=== PATIENT | male | born 1960 | race Caucasian/White ===

== ENCOUNTER 2016-11-27 21:05 | Emergency (ER) | payer OTHER ==
[~2016-11-27] VITALS: Ht 198.1 cm; Wt 90.7 kg
[~2016-11-27 21:05] MED LIST: ALBUTEROL0.09 MG/A1 IH; AMBIEN10 MG PO; AMLODIPINE BESYL5 MG PO; ANAPROX DS550 MG PO; CIPRO500 MG PO; DELTASONE10 MG PO; DOXYCYCLINE MO100 MG PO; DOXYCYCLINE100 M3 PO; LISINOPRIL/HCTZ1 TA3 PO; LISINOPRIL20 MG PO; LISINOPRIL5 MG PO; LOPRESSOR25 MG PO; METOPROLOL100 MG PO; MUCINEX600 MG PO; NASONEX0.05 MG/AC NAS; PHENERGAN W/DM120 ML PO; PREDNICOT20 MG PO; PREDNISONE20 M1 PO; PROAIR RESPICL90 MCG IH; PROVENTIL0.09 MG/A1 INH; TRAMADOL HCL50 MG PO; ULTRAM50 MG PO; VIBRAMYCIN100 MG PO; ZESTORETIC 12.51 TA2 PO; ZITHROMAX Z PA250 MG PO; ZOFRAN ODT4 MG SL
[2016-11-27 21:24] VITALS: BP 165/82
[2016-11-27] MEDS ORDERED: NORCO 5-325 TA1 EACH PO (22:34)
[2016-11-27] MEDS ORDERED: PREDNISONE10 MG PO (22:34)
[2016-11-27] MEDS ORDERED: Orphenadrine C100 MG PO (22:34)
[2016-11-27 22:37] LABS: BILIRUBIN NEGATIVE (NEGATIVE); BLOOD 1+ (NEGATIVE); CLARITY CLEAR (CLEAR); COLOR YELLOW (YELLOW); GLUCOSE NEGATIVE (NEGATIVE); KETONE NEGATIVE (NEGATIVE); LEUKO ESTERASE NEGATIVE (NEGATIVE); NITRITE NEGATIVE (NEGATIVE); PH 5.5 (5.0-9.0); SPECIFIC GRAVITY 1.025 (1.005-1.030); UROBILINOGEN 0.2 E.U./dl (0.2-1.0)
[2016-11-27 22:45] LABS: BACTERIA TRACE; EPITHELIAL CELLS 0-2
== END 2016-11-27 23:39 | disposition home or self-care (01) ==
LOC: ED 21:05
PROVIDERS: Emergency Medicine Emergency Medical Services
DX: S39.012A Strain of muscle, fascia and tendon of lower back, initial encounter (principal); M51.37 Other intervertebral disc degeneration, lumbosacral region; J32.8 Other chronic sinusitis; F17.200 Nicotine dependence, unspecified, uncomplicated; Z88.6 Allergy status to analgesic agent; X58.XXXA Exposure to other specified factors, initial encounter; Y93.89 Activity, other specified; Y92.69 Other specified industrial and construction area as the place of occurrence of the external cause; Y99.9 Unspecified external cause status

== ENCOUNTER 2017-07-30 05:22 | Emergency (ER) | payer OTHER ==
[~2017-07-30] VITALS: Ht 198.1 cm; Wt 99.8 kg
[~2017-07-30 05:22] MED LIST changes: +NORCO 5-325 TA1 EACH PO; +Orphenadrine C100 MG PO; +PREDNISONE10 MG PO
[2017-07-30 06:10] LABS: BASO % 0.4 % (0.0-1.0); EOS # 0.5 10*3/uL (0.0-0.4); EOS % 5.2 % (1.0-4.0); HEMATOCRIT 47.5 % (42.0-52.0); LYMPH # 3.1 10*3/uL (1.3-4.4); LYMPH % 32.3 % (27.0-41.0); MEAN CELL VOLUME 95.8 fl (80.0-94.0); MEAN CORPUSCULAR HGB 32.3 pg (27.0-31.0); MEAN CORPUSCULAR HGB CONC 33.7 g/dl (33.0-37.0); MEAN PLATELET VOLUME 11.5 fl (9.6-12.3); MONO # 0.9 10*3/uL (0.1-1.0); MONO % 9.6 % (3.0-9.0); NEUT % 52.3 % (47.0-73.0); PLATELET COUNT AUTOMATED 211 10*3/uL (130-400); RED BLOOD COUNT 4.96 10*6/uL (4.50-5.90); RED CELL DISTRI WIDTH 12.6 % (0-14.5); WHITE BLOOD COUNT 9.5 10*3/uL (4.8-10.8)
[2017-07-30 06:21] LABS: ACT PARTIAL THROMBO TIME 27.2 SECONDS (20.8-31.5)
[2017-07-30 06:27] VITALS: BP 143/91
[2017-07-30 06:29] LABS: ALBUMIN 3.7 gm/dl (3.1-4.5); ALKALINE PHOSPHATASE 80 U/L (45-117); BUN 21 mg/dl (7-24); CHLORIDE 106 mmol/L (98-107); CREATININE 1.08 mg/dL (0.70-1.30); POTASSIUM 4.2 mmol/L (3.5-5.1); SGOT/AST 23 IU/L (3-35); SGPT/ALT 22 U/L (12-78); SODIUM 140 mmol/L (136-145); TOTAL PROTEIN 7.3 gm/dL (6.4-8.2)
[2017-07-30 06:58] LABS: TROPONIN I < 0.015 ng/ml (<0.045)
[2017-07-30] MEDS ORDERED: PREDNISONE50 MG PO ×2 (06:58→07:26)
[2017-07-30] MEDS ORDERED: AVPAK AZITHROM250 M1 PO ×2 (06:58→07:26)
[2017-07-30] MEDS ORDERED: DUONEB 3 MG/3 ML3 M1 INH (07:25)
[2017-07-30] MEDS ORDERED: NEBULIZER NEB ×2 (07:25→17:14)
== END 2017-07-30 08:27 | disposition home or self-care (01) ==
LOC: ED 05:22
PROVIDERS: Student in an Organized Health Care Education/Training Program
DX: J44.1 Chronic obstructive pulmonary disease with (acute) exacerbation (principal); F17.200 Nicotine dependence, unspecified, uncomplicated; J32.9 Chronic sinusitis, unspecified; Z79.899 Other long term (current) drug therapy; Z88.6 Allergy status to analgesic agent

== ENCOUNTER 2017-09-17 12:06 | Emergency (ER) | payer OTHER ==
[~2017-09-17 12:06] MED LIST changes: +AVPAK AZITHROM250 M1 PO; +DUONEB 3 MG/3 ML3 M1 INH; +NEBULIZER NEB; +PREDNISONE50 MG PO
[2017-09-17] MEDS ORDERED: PROAIR HFA8.5 GM INH (12:15)
[2017-09-17] MEDS ORDERED: SYMB160 INH (12:15)
[2017-09-17] MEDS ORDERED: LISINOPRIL5 MG PO (12:16)
[2017-09-17 12:38] LABS: BASO # 0.1 10*3/uL (0.0-0.1); BASO % 0.6 % (0.0-1.0); EOS # 0.2 10*3/uL (0.0-0.4); EOS % 1.8 % (1.0-4.0); HEMATOCRIT 49.5 % (42.0-52.0); HEMOGLOBIN 16.8 g/dl (14.0-18.0); LYMPH # 2.6 10*3/uL (1.3-4.4); LYMPH % 28.6 % (27.0-41.0); MEAN CELL VOLUME 95.7 fl (80.0-94.0); MEAN CORPUSCULAR HGB 32.5 pg (27.0-31.0); MEAN CORPUSCULAR HGB CONC 33.9 g/dl (33.0-37.0); MEAN PLATELET VOLUME 10.9 fl (9.6-12.3); MONO # 0.7 10*3/uL (0.1-1.0); MONO % 7.6 % (3.0-9.0); NEUT # 5.6 10*3/uL (2.3-7.9); NEUT % 61.3 % (47.0-73.0); PLATELET COUNT AUTOMATED 174 10*3/uL (130-400); RED BLOOD COUNT 5.17 10*6/uL (4.50-5.90); RED CELL DISTRI WIDTH 12.9 % (0-14.5); WHITE BLOOD COUNT 9.1 10*3/uL (4.8-10.8)
[2017-09-17 12:46] LABS: ACT PARTIAL THROMBO TIME 27.2 SECONDS (20.8-31.5)
[2017-09-17 12:54] LABS: ALKALINE PHOSPHATASE 74 U/L (45-117); BUN 17 mg/dl (7-24); CHLORIDE 105 mmol/L (98-107); CREATININE 1.08 mg/dL (0.70-1.30); LIPASE 65 U/L (73-393); POTASSIUM 3.8 mmol/L (3.5-5.1); SGOT/AST 16 IU/L (3-35); SGPT/ALT 22 U/L (12-78); SODIUM 137 mmol/L (136-145); TOTAL PROTEIN 7.3 gm/dL (6.4-8.2); TROPONIN I < 0.015 ng/ml (<0.045)
[2017-09-17 14:41] VITALS: BP 155/100
== END 2017-09-17 14:50 | disposition short-term general hospital (02) ==
LOC: ED 12:06
PROVIDERS: Emergency Medicine
DX: I63.9 Cerebral infarction, unspecified (principal); J32.9 Chronic sinusitis, unspecified; Z88.6 Allergy status to analgesic agent; Z79.899 Other long term (current) drug therapy

== ENCOUNTER 2018-03-23 19:47 | Inpatient (IN) | payer SELFPAY ==
[~2018-03-23] VITALS: Ht 200.7 cm; Wt 95.3 kg
--- NOTE | ~2018-03-23 | PROC NOTE ---
[place], [place] PROCEDURE NOTE NAME: NEMO AVILA UNIT #: [id number] ROOM: 528 DOCTOR: TAMIKO HUMPHRIES MD,AICHA BIRTHDATE: [birth year] DOS: 03/26/2018 BRONCHOSCOPY NOTE PREOPERATIVE DIAGNOSES: The patient with severe cough and wheezing. The patient is not responding to current treatment and maximal medical management. POSTOPERATIVE DIAGNOSES: Removal of the mucus plug, moderate impaction in the bronchial tree bilaterally. There were no endobronchial obstructive lesion. COMPLICATION: None. PROCEDURE DESCRIPTION: Informed consent obtained for the patient. The patient brought to the OR and placed in supine position. Conscious sedation administered by Anesthesia Department. After achieving appropriate sedation, airway introduced into the mouth. Bronchoscope advanced to the airway into laryngeal area. Epiglottis and vocal cord seen. Moderate amount of redundant tissue noted in the pharyngeal area with fat deposition. The vocal cord noted yellowish in color and moving symmetrical movement. Bronchoscope advanced through the vocal to the tracheal lumen. Tracheal lumen was identified and noted moderate amount of mucus, which was suctioned out to the fredo level. The patient noted moderate impaction of the mucus plugs in endobronchial tree bilaterally was suctioned out, clear with normal saline wash, sent for cultures. Procedure was well tolerated by the patient without difficulty. Postoperative findings will be discussed with the patient once the patient recovered the effects of acute sedation. No immediate change in treatment will be needed. The cultures of the current bronchial washing was sent to the laboratory. AICHA MORRISON MD CM:PROCNOTE:PROCEDURE NOTE [phone] AICHA HUMPHRIES MD
--- NOTE | ~2018-03-23 | PR ---
[place], [place] PROGRESS NOTE NAME: [id number] UNIT #: [id number] ROOM: 528 DOCTOR: TAMIKO HUMPHRIES MD,AICHA BIRTHDATE: [birth year] DOS: 03/26/2018 SUBJECTIVE: The patient has been noted n.p.o. ____ bronchoscopy, still noted with the patient significant cough that remained nonproductive with excessive coughing noted with the chest pain intermittently in the lower portion of the rib cage. The patient denies symptoms of hemoptysis. Shortness of breath occurs with exertion with wheezing, was also reported continuously as well. Denies symptoms of edema of the lower extremity, headache or diplopia. Remaining system review of the patient noted all negative. OBJECTIVE: GENERAL: The patient has been currently lying in the bed on the morning of assessment. VITAL SIGNS: Temperature noted normal in the last 24 hours, respiration 18-20, heart rate 77-71, blood pressure 170/91, 154/88. Pulse oxygen saturation recorded on room air as 94% saturation. HEENT: Moderate obesity. Head was atraumatic. Eyes nonicterus. NECK: Supple. CARDIOVASCULAR: S1, S2 audible. LUNGS: Moderately reduced, breath sounds noted in the lungs bilaterally with expiratory wheezing. There were no crackles. ABDOMEN: Soft, nontender, bowel sounds present. EXTREMITIES: No acute edema. MUSCULOSKELETAL: Without any acute deformities. CENTRAL NERVOUS SYSTEM: Cranial nerves 2-12 intact. LABORATORY DATA: CBC today: WBC count 15,000, MCV 100.9. Normal platelet count. BMP this morning, BUN 23 and creatinine normal. Echocardiogram completed yesterday was assessed by Dr. Plunkett was reported with findings of mild LVH was noted without any segmental wall motion abnormalities. The CTA of the head was also done, which was completed yesterday. The patient reported findings of no acute intracranial abnormalities. IMPRESSION: The patient who has been currently noted with ongoing acute exacerbation of chronic obstructive pulmonary disease with acute tracheobronchitis, severe coughing, and impaction of the mucus plugs ____. History of chronic heavy nicotine abuse and moderate obesity. PLAN OF TREATMENT: Proceed with the fibrobronchoscopy as planned. Changes in the treatment, which needs to be done would be based on the progression of the illness. Other usual therapy, plan of management, care plan as well in progress. Supportive care. Other therapies, plan of management as well. Additional treatment changes will be done based on the progression of the illness. [place], [place] PROGRESS NOTE NAME: NEMO AVILA A UNIT #: [id number] ROOM: 528 DOCTOR: AIHCA WILSON MD BIRTHDATE: [birth year] AICHA MORRISON MD CM:PNPAO [id number] AICHA HUMPHRIES MD 03/27/18 0009 interface
--- NOTE | ~2018-03-23 | PR ---
[place], [place] PROGRESS NOTE NAME: NEMO AVILA UNIT #: [id number] ROOM: 528 DOCTOR: TAMIKO HUMPHRIES MD,AICHA BIRTHDATE: [birth year] DOS: 03/27/2018 PULMONARY PROGRESS NOTE SUBJECTIVE: Bronchoscopy was completed yesterday resulted in marked resolution and improvement of the respiratory symptoms in the last 24 hours. Denies symptoms of fever, chills, chest pain, or hemoptysis. He has been ambulating. OBJECTIVE: VITAL SIGNS: Normal temperature, respiratory rate 18, pulse 78, blood pressure 140/84. Pulse oxygen saturation on room air 99% saturation. HEENT: The patient was noted without any acute new finding. Moderate obesity. CARDIOVASCULAR: S1, S2 is audible. LUNGS: The patient was noted without any wheezing or crackles at the present time. ABDOMEN: Soft, nontender. EXTREMITIES: No edema. LABORATORY DATA: Culture of the bronchial washing noted with normal chu. The Gram stain of yesterday with many white blood cell, few gram-positive cocci in pairs and clusters. IMPRESSION: Significant improvement was noted with acute exacerbation of chronic obstructive pulmonary disease, acute tracheobronchitis. The patient had bronchoscopy and improvement in the symptoms. PLAN OF TREATMENT: Discharge planning for this patient. The patient could be discharged home today from the pulmonary standpoint for further followup as an outpatient. Abstinence tobacco was discussed with the patient. Tapering prednisone, oral antibiotics. Outpatient appointment in the office to further assess the patient's COPD and bronchial asthma. AICHA MORRISON MD CM:PNTRANS [phone] AICHA HUMPHRIES MD 03/27/18 1156 interface
--- NOTE | ~2018-03-23 | PR ---
[place], [place] PROGRESS NOTE [id number] UN[facility] #: [id number] ROOM: 528 DOCTOR: NEMO ARNOLD MD BIRTHDATE: [birth year] DOS: 03/26/2018 CARDIOLOGY PROGRESS NOTE SUBJECTIVE: The patient was seen today at his bedside on 03/26/2018 for followup of presumed atherosclerotic heart disease and abdominal aortic aneurysm. He is just back from having a bronchoscopy and is still coughing from that. The note in the chart indicates that he did have a considerable mucus plugging. He denied any significant back pain. He denies any chest pain at this time. PHYSICAL EXAMINATION: VITAL SIGNS: Today, pulse is 87 and regular, blood pressure is 132/74. He weighs 95.3 kg and has a body mass index of 23.7. NECK: Supple. He has no jugular distention. Carotids are full. LUNGS: Respirations are unlabored. His chest is clear to auscultation and percussion. He has no presacral edema. HEART: Has a regular rhythm with an S4 gallop. ABDOMEN: Benign. There are no masses, organomegaly or bruits. EXTREMITIES: Showed no edema. IMPRESSION: 1. Small abdominal aortic aneurysm at the iliac bifurcation measuring 2.9 cm in its maximum dimension. The aneurysm is saccular in configuration and appears to be stable since at least 04/23/2015. 2. Probable atherosclerotic heart disease. 3. Musculoskeletal back pain. 4. Chronic obstructive pulmonary disease with smoking up until the time of this admission. 5. Echocardiogram on 03/25/2018 showed mildly dilated left ventricle with mild concentric left ventricular hypertrophy, normal segmental wall motion and normal systolic function with normal diastolic function and no valve abnormalities. PLAN: At this point, the patient should be managed medically from a cardiac standpoint. He should be on a statin (high potency) and beta tamara. We have started those on this admission and he seems to be tolerating them well. He should also refrain from any future cigarette use and he claims that he will stop smoking at the time of his discharge. No other cardiac workup is planned at this time. We would like to see him back in the office for followup in 1-2 months and then probably once or twice a year thereafter. He probably should be seen by a vascular surgeon within the next few months to review his CAT scans and to arrange for followup of the aneurysm. It is my opinion; however, that they will simply recommend risk factor modification as we have already initiated. [facility] and I will remain available if needed during this hospitalization. I thank the hospitalist physicians for asking our advice regarding the patient's care. [place], [place] PROGRESS NOTE NAME: NEMO AVILA UNIT #: [id number] ROOM: 528 DOCTOR: NEMO ARNOLD MD BIRTHDATE: [birth year] NEMO ARNOLD MD CM:PNTRANS [phone] NEMO ARNOLD MD 03/26/18 1241 interface
--- NOTE | ~2018-03-23 | EKG ---
[place], [place] ELECTROCARDIOGRAM REPORT NAME: NEMO AVILA UNIT #: [id number] ROOM: 528 DOCTOR: WENDY DRAFT REPORT BIRTHDATE: [birth year] [facility] Test Date: 2018-03-23 Test Time: 20:26:18 Pat Name: NEMO AVILA Department: ER Room: 528 Gender: M Manager Critical Care Unit: Raman Mujica : 1960 Requested By: EMILY MANCILLA Order Number: [id number] Reading MD: Nemo Plunkett MD Measurements Intervals [place] Rate: 103 P: 67 WV: 159 QRS: 56 QRSD: 99 T: 44 QT: 334 QTc: 437 Interpretive Statements Sinus tachycardia Left atrial enlargement Minimal ST depression, inferior leads Artifact in lead(s) II,III,aVR,aVL,aVF,V1,V2,V5,V6 and baseline wander in lead(s) I,II,aVR,aVF,V2,V3,V4,V5,V6 Compared to ECG 01/28/2018 07:54:36 Atrial abnormality now present Electronically Signed On 03-24-2018 8:34:22 PST by Nemo Plunkett MD CM:EKGRPT:ELECTROCARDIOGRAM REPORT [id number] EMILY MANCILLA EPIPHANY DRAFT REPORT EMILY MANCILLA
--- NOTE | ~2018-03-23 | CON ---
[place], [place] REPORT OF CONSULTATION NAME: NEMO AVILA UNIT #: [id number] ROOM: 528 DOCTOR: AICHA WILSON MD BIRTHDATE: [birth year] DOS: 03/25/2018 PULMONARY CONSULTATION, EVALUATION, AND MANAGEMENT REASON FOR CONSULTATION: Ongoing acute exacerbation of COPD. REQUESTING PHYSICIAN: Hospitalist service. HISTORY OF PRESENT ILLNESS: This is a 57-year-old white male with past diagnosis of COPD, presented to the hospital for assessment of ongoing respiratory symptoms present for several months with progressive worsening occurred in the last few days. Symptoms have been noted worsening with excessive severe coughing and shortness of breath. He was also complaining of pain in the chest as well. The symptoms are noted progressively worsened. He has been assessed in the emergency. He has CT of the aorta done as well. The cough continues to remain nonproductive. The pain was described to be severe resulting in arching of the back because of the pain. Wheezing has been reported for significant amount of time. The patient denies symptoms of chest pain at this time; however, other respiratory symptoms remain the same. REVIEW OF SYSTEMS: CONSTITUTIONAL: Fatigue and tiredness noted without any symptoms of fever or chills. EYES: Denies any burning, redness or tenderness. EARS, NOSE, AND THROAT SYMPTOMS: Denies sore throat, hoarseness, otalgia, postnasal drainage or epistaxis. CARDIOVASCULAR: Denies anginal pain, edema or pain of the lower extremities. GASTROINTESTINAL: Denies dysphagia, nausea, vomiting, diarrhea, abdominal pain, hematemesis, melena or hematochezia. GENITOURINARY: No dysuria, suprapubic pain or hematuria. MUSCULOSKELETAL: No acute joint pain, redness or tenderness. CENTRAL NERVOUS SYSTEM: Denies dizziness, headache, diplopia or seizures. Remaining systems were reviewed, they were noted all negative. PAST MEDICAL HISTORY: Reported as: 1. COPD. 2. Past CVA without any residual deficit. 3. Intervertebral disk disease at L5 and S1. 4. Essential hypertension. 5. 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 6. History of sinus infections. PAST SURGICAL HISTORY: Reported as removal of lipoma from the skin. SOCIAL HISTORY: The patient is , has 4 children, lives at home. Smoking is noted from a younger age, 2 packs of cigarettes a day, currently smoking half-a-pack of cigarettes per day and attempting to quit smoking cigarettes. He drinks between 15-30 beers a week. The patient also uses recreational marijuana. [place], [place] REPORT OF CONSULTATION NAME: NEMO AVILA UNIT #: [id number] ROOM: 528 DOCTOR: TAMIKO HUMPHRIES MD,AICHA BIRTHDATE: [birth year] FAMILY HISTORY: The patient's father at the age of 8080 years old from complication of coronary artery disease. Mother at the age of 8080 years old from complication related to diabetes mellitus. HOME MEDICATIONS: Listed as use of Ventolin nebulizer treatment, ProAir HFA inhaler, aspirin, Symbicort, and lisinopril. DRUG ALLERGIES: THE PATIENT HAS KNOWN ALLERGIES TO MOTRIN CAUSING GI INTOLERANCE. PHYSICAL EXAMINATION: GENERAL: A 57-year-old male patient who has been currently noted to be awake and alert without any acute distress on this morning of assessment. Height was recorded by the nursing staff as 5 feet 7 inches, weight of 210 pounds, BMI 23. VITAL SIGNS: He has normal temperature, respiratory rate 18-25, heart rate of 101-80, blood pressure 114/77 to 142/88. Pulse oxygen saturation on room air was 95% saturation, on 2 liters 97%. HEENT: Head was atraumatic. Eyes nonicterus. NECK: Supple. Staining of moustache with tobacco and nicotine was noted. CARDIOVASCULAR: S1 and S2 audible. LUNGS: Diffuse reduced breath sounds, expiratory wheezing without any crackles. ABDOMEN: Soft, nontender. Bowel sounds present. EXTREMITIES: Without any edema, clubbing or cyanosis. MUSCULOSKELETAL: Without any acute deformities. CENTRAL NERVOUS SYSTEM: Cranial nerves 2-12 intact. No focal deficit. DIAGNOSTIC DATA: CBC yesterday on admission was noted as normal CBC. Lactic acid 2.6. PT/PTT yesterday was normal. CMP yesterday with normal BUN and creatinine and other electrolytes. Followup lactic acid 1.4. Troponins were normal, 2 sets yesterday. CBC this morning, WBC count 16.7, hemoglobin and hematocrit normal. CMP with glucose 178, remaining CMP normal. Chest x-ray, 2-view, which was done in the Emergency Room on 03/23/2018 was reviewed and noted without any acute abnormalities. CT scan of the thoracic abdominal aorta was also done, there was no evidence of aneurysm or other abnormality of the aorta. On review of the lung, lung window shows evidence of paraseptal and centrilobular emphysema combination. There was no gross pulmonary infiltration. There was no lymphadenopathy. No pleural effusions. IMPRESSION: 1. Chronic heavy nicotine dependent patient, currently noted with progressive increased respiratory symptoms with acute exacerbation of chronic obstructive pulmonary disease, admitted to the hospital with atypical chest pain. Thoracic aortic aneurysm was excluded. 2. History of essential hypertension. 3. History of use of marijuana, recreational, as well. PLAN OF MANAGEMENT: The patient has been noted with current severe symptoms, which has been noted progressive with severe nonproductive cough, unable to expectorate sputum. He was suggested therapeutic bronchoscopy for further [place], [place] REPORT OF CONSULTATION NAME: NEMO AVILA UNIT #: [id number] ROOM: 528 DOCTOR: AICHA WILSON MD BIRTHDATE: [birth year] assessment. He agrees with that. The description, risks and benefits of the procedure were discussed and the procedure is ordered to be done tomorrow morning. N.p.o. past midnight status will be achieved. Continue nicotine replacement patches. Continue high dose of Mucinex to help expectorate sputum. DVT prophylaxis and other treatment plan of management to be continued accordingly. Usual care, other supportive therapy, plan of management, care plan with other changes additionally will be added to the treatment based on the progression of the illness and further addition of assessments. AICHA MORRISON MD CM:CONSTR:REPORT OF CONSULTATION 1223 03/25/18 1445 interface
--- NOTE | ~2018-03-23 | PR ---
[place], [place] PROGRESS NOTE NAME: NEMO AVILA UNIT #: [id number] ROOM: 528 DOCTOR: NEMO ARNOLD MD BIRTHDATE: [birth year] DOS: 03/25/2018 CARDIOLOGY PROGRESS NOTE SUBJECTIVE: The patient was seen today 03/25/2018 at his breath bedside for followup of his presumed atherosclerotic heart disease and abdominal aortic aneurysm. His breathing has improved and his back pain has improved as well. I understand that he is scheduled for bronchoscopy later in the week. As noted yesterday, he does have a small aneurysm at the aortic bifurcation. It is mid abdomen. Compared to a CAT scan done a few years ago, the aneurysm is stable in size and probably asymptomatic. It measures 2.9 cm in its maximal diameter. At this point, the best management strategy is avoidance of cigarettes, control of blood pressure, and routine risk factor modification. We did start him on metoprolol yesterday and I will probably increase the dose today. PHYSICAL EXAMINATION: VITAL SIGNS: His pulse is 100 and regular, blood pressure is 142/88. He is afebrile. He weighs 95.2 kilograms with a body mass index of 23.7. NECK: Supple. He has no jugular distention. Carotids are full. LUNGS: Respirations are unlabored at rest. He does have decreased breath sounds and expiratory prolongation bilaterally. HEART: Has a regular rhythm with an S4 gallop. ABDOMEN: Benign, without masses, organomegaly or bruits. EXTREMITIES: Showed no edema. IMPRESSION: 1. Acute exacerbation of chronic obstructive pulmonary disease. 2. Atherosclerotic heart disease as demonstrated by an abnormal stress test done recently along with vascular calcifications. 3. Small saccular abdominal aortic aneurysm at the aortic bifurcation, unchanged over the last 2-3 years. 4. Back pain, most likely musculoskeletal. PLAN: We will increase his metoprolol and continue to observe him in the hospital while his evaluation is proceeding. I think that he should be seen for routine outpatient assessment by a vascular surgeon after he has recovered from his current hospitalization. I thank the hospitalist group for asking our advice regarding his care. [place], [place] PROGRESS NOTE NAME: NEMO AVILA UNIT #: [id number] ROOM: 528 DOCTOR: NEMO ARNOLD MDTE: 60 NEMO ARNOLD MD CM:PNPAO [phone] NEMO ARNOLD MD 03/25/18 1436 interface
[2018-03-23 19:47] VITALS: BP 123/57; BP 144/116
[~2018-03-23 19:47] MED LIST changes: +ASPIR LOW81 MG PO; +LEVOFLOXACIN500 MG PO; +PROAIR HFA8.5 GM INH; +SYMB160 INH; +Ventolin 02.5 MG/3 M INH
[2018-03-23 20:34] LABS: BASO # 0.1 10*3/uL (0.0-0.1); BASO % 0.6 % (0.0-1.0); EOS # 0.2 10*3/uL (0.0-0.4); EOS % 2.3 % (1.0-4.0); HEMATOCRIT 46.4 % (42.0-52.0); HEMOGLOBIN 16.5 g/dl (14.0-18.0); LYMPH # 4.5 10*3/uL (1.3-4.4); LYMPH % 43.2 % (27.0-41.0); MEAN CELL VOLUME 94.7 fl (80.0-94.0); MEAN CORPUSCULAR HGB 33.7 pg (27.0-31.0); MEAN CORPUSCULAR HGB CONC 35.6 g/dl (33.0-37.0); MEAN PLATELET VOLUME 10.7 fl (9.6-12.3); MONO # 1.1 10*3/uL (0.1-1.0); MONO % 10.6 % (3.0-9.0); NEUT # 4.5 10*3/uL (2.3-7.9); NEUT % 43.1 % (47.0-73.0); PLATELET COUNT AUTOMATED 229 10*3/uL (130-400); RED CELL DISTRI WIDTH 11.9 % (0-14.5); WHITE BLOOD COUNT 10.4 10*3/uL (4.8-10.8)
[2018-03-23 20:46] LABS: ACT PARTIAL THROMBO TIME 27.5 SECONDS (20.8-31.5)
[2018-03-23 20:53] LABS: ALBUMIN 4.3 gm/dl (3.1-4.5); BUN 19 mg/dl (7-24); CHLORIDE 104 mmol/L (98-107); CREATININE 1.16 mg/dL (0.70-1.30); LIPASE 95 U/L (73-393); POTASSIUM 3.9 mmol/L (3.5-5.1); SGOT/AST 20 IU/L (3-35); SGPT/ALT 24 U/L (12-78); SODIUM 137 mmol/L (136-145)
[2018-03-23 20:55] LABS: ALKALINE PHOSPHATASE 71 U/L (45-117)
[2018-03-23 21:03] LABS: TROPONIN I < 0.015 ng/ml (<0.045)
[2018-03-23 21:30] VITALS: BP 138/72
[2018-03-23 23:27] VITALS: BP 138/80
[2018-03-24 01:13] VITALS: BP 148/84
[2018-03-24 09:05] LABS: BILIRUBIN NEGATIVE (NEGATIVE); BLOOD 1+ (NEGATIVE); CLARITY SL CLOUDY (CLEAR); COLOR YELLOW (YELLOW); GLUCOSE NEGATIVE (NEGATIVE); KETONE NEGATIVE (NEGATIVE); LEUKO ESTERASE NEGATIVE (NEGATIVE); NITRITE NEGATIVE (NEGATIVE); PH 5.5 (5.0-9.0); UROBILINOGEN 0.2 E.U./dl (0.2-1.0)
[2018-03-24 12:00] VITALS: BP 153/77
[2018-03-24 16:00] VITALS: BP 148/75
[2018-03-24 20:00] VITALS: BP 164/85
[2018-03-25] VITALS: BP 149/77
[2018-03-25 07:15] LABS: BASO % 0.1 % (0.0-1.0); HEMATOCRIT 45.4 % (42.0-52.0); HEMOGLOBIN 15.5 g/dl (14.0-18.0); LYMPH # 1.3 10*3/uL (1.3-4.4); LYMPH % 7.6 % (27.0-41.0); MEAN CORPUSCULAR HGB 34.3 pg (27.0-31.0); MEAN CORPUSCULAR HGB CONC 34.1 g/dl (33.0-37.0); MEAN PLATELET VOLUME 11.1 fl (9.6-12.3); MONO # 0.8 10*3/uL (0.1-1.0); NEUT # 14.5 10*3/uL (2.3-7.9); NEUT % 86.8 % (47.0-73.0); PLATELET COUNT AUTOMATED 221 10*3/uL (130-400); RED BLOOD COUNT 4.52 10*6/uL (4.50-5.90); RED CELL DISTRI WIDTH 12.6 % (0-14.5); WHITE BLOOD COUNT 16.7 10*3/uL (4.8-10.8)
[2018-03-25 07:25] LABS: MEAN CELL VOLUME 100.4 fl (80.0-94.0)
[2018-03-25 07:43] LABS: ALBUMIN 3.6 gm/dl (3.1-4.5); ALKALINE PHOSPHATASE 70 U/L (45-117); BUN 22 mg/dl (7-24); CHLORIDE 106 mmol/L (98-107); CREATININE 1.05 mg/dL (0.70-1.30); FREE T4 0.84 ng/dl (0.76-1.46); PHOSPHOROUS 3.6 mg/dL (2.5-4.9); POTASSIUM 4.3 mmol/L (3.5-5.1); SGOT/AST 12 IU/L (3-35); SGPT/ALT 22 U/L (12-78); SODIUM 139 mmol/L (136-145); TOTAL PROTEIN 7.1 gm/dL (6.4-8.2)
[2018-03-25 07:49] LABS: THYROID STIM HORMONE (HS) 0.851 uIU/ml (0.358-4.75)
[2018-03-25 08:00] VITALS: BP 142/88
[2018-03-25 08:41] LABS: VITAMIN D, 25-HYDROXY 17.6 ng/mL (30-100)
[2018-03-25 12:00] VITALS: BP 162/86
[2018-03-25 16:00] VITALS: BP 106/81
[2018-03-25 20:00] VITALS: BP 138/72
[2018-03-25 22:00] VITALS: BP 142/70
[2018-03-26] VITALS (12 sets, daily range): BP systolic 112–173; BP diastolic 63–91
[2018-03-26 10:08] LABS: BASO % 0.1 % (0.0-1.0); HEMATOCRIT 45.9 % (42.0-52.0); HEMOGLOBIN 15.3 g/dl (14.0-18.0); LYMPH # 1.8 10*3/uL (1.3-4.4); LYMPH % 12.1 % (27.0-41.0); MEAN CELL VOLUME 100.9 fl (80.0-94.0); MEAN CORPUSCULAR HGB 33.6 pg (27.0-31.0); MEAN CORPUSCULAR HGB CONC 33.3 g/dl (33.0-37.0); MEAN PLATELET VOLUME 11.4 fl (9.6-12.3); MONO # 0.9 10*3/uL (0.1-1.0); MONO % 5.7 % (3.0-9.0); NEUT # 12.3 10*3/uL (2.3-7.9); NEUT % 81.7 % (47.0-73.0); PLATELET COUNT AUTOMATED 227 10*3/uL (130-400); RED BLOOD COUNT 4.55 10*6/uL (4.50-5.90); RED CELL DISTRI WIDTH 12.6 % (0-14.5)
[2018-03-26 10:30] LABS: BUN 23 mg/dl (7-24); CHLORIDE 106 mmol/L (98-107); CREATININE 1.05 mg/dL (0.70-1.30); POTASSIUM 4.1 mmol/L (3.5-5.1); SODIUM 140 mmol/L (136-145)
[2018-03-27] VITALS: BP 140/84
[2018-03-27 06:44] LABS: BASO % 0.1 % (0.0-1.0); HEMATOCRIT 48.8 % (42.0-52.0); HEMOGLOBIN 16.3 g/dl (14.0-18.0); LYMPH # 1.6 10*3/uL (1.3-4.4); LYMPH % 10.9 % (27.0-41.0); MEAN CELL VOLUME 100.6 fl (80.0-94.0); MEAN CORPUSCULAR HGB 33.6 pg (27.0-31.0); MEAN CORPUSCULAR HGB CONC 33.4 g/dl (33.0-37.0); MEAN PLATELET VOLUME 11.3 fl (9.6-12.3); MONO # 0.8 10*3/uL (0.1-1.0); MONO % 5.8 % (3.0-9.0); NEUT # 11.8 10*3/uL (2.3-7.9); NEUT % 82.7 % (47.0-73.0); PLATELET COUNT AUTOMATED 243 10*3/uL (130-400); RED BLOOD COUNT 4.85 10*6/uL (4.50-5.90); RED CELL DISTRI WIDTH 12.6 % (0-14.5); WHITE BLOOD COUNT 14.3 10*3/uL (4.8-10.8)
[2018-03-27 07:08] LABS: BUN 22 mg/dl (7-24); CHLORIDE 102 mmol/L (98-107); POTASSIUM 4.5 mmol/L (3.5-5.1); SODIUM 136 mmol/L (136-145)
[2018-03-27] MEDS ORDERED: NATURE'S BLEND F1 MG PO (12:33)
[2018-03-27] MEDS ORDERED: ATORVASTATIN CA80 M1 PO (12:33)
[2018-03-27] MEDS ORDERED: PREDNISONE10 MG PO (12:33)
[2018-03-27] MEDS ORDERED: METOPROLOL TART50 M1 PO (12:33)
[2018-03-27] MEDS ORDERED: VITAMIN D5000 UNI1 PO (12:33)
[2018-03-27] MEDS ORDERED: VIBRAMYCIN100 MG PO (12:33)
[2018-03-27 14:09] LABS: ACID FAST SPEC PROCESSING Concentration (.)
== END 2018-03-27 14:21 | disposition home or self-care (01) | DRG 871 ==
LOC: ED 19:47 → EDHOLD 03-24 00:10 → 5E 03-24 00:10
PROVIDERS: Internal Medicine; Internal Medicine Critical Care Medicine; Nurse Practitioner Family
PROC: 0BC68ZZ Extirpation of Matter from Right Lower Lobe Bronchus, Via Natural or Artificial Opening Endoscopic (ICD-10-PCS; principal; 2018-03-26)
PROC: 0BC58ZZ Extirpation of Matter from Right Middle Lobe Bronchus, Via Natural or Artificial Opening Endoscopic (ICD-10-PCS; principal; 2018-03-26)
PROC: 0BC48ZZ Extirpation of Matter from Right Upper Lobe Bronchus, Via Natural or Artificial Opening Endoscopic (ICD-10-PCS; principal; 2018-03-26)
PROC: 0BC98ZZ Extirpation of Matter from Lingula Bronchus, Via Natural or Artificial Opening Endoscopic (ICD-10-PCS; principal; 2018-03-26)
PROC: 0BC28ZZ Extirpation of Matter from Carina, Via Natural or Artificial Opening Endoscopic (ICD-10-PCS; principal; 2018-03-26)
PROC: 0BC88ZZ Extirpation of Matter from Left Upper Lobe Bronchus, Via Natural or Artificial Opening Endoscopic (ICD-10-PCS; principal; 2018-03-26)
PROC: 0BC78ZZ Extirpation of Matter from Left Main Bronchus, Via Natural or Artificial Opening Endoscopic (ICD-10-PCS; principal; 2018-03-26)
PROC: 0BC38ZZ Extirpation of Matter from Right Main Bronchus, Via Natural or Artificial Opening Endoscopic (ICD-10-PCS; principal; 2018-03-26)
PROC: 0BCB8ZZ Extirpation of Matter from Left Lower Lobe Bronchus, Via Natural or Artificial Opening Endoscopic (ICD-10-PCS; principal; 2018-03-26)
PROC: 0BC18ZZ Extirpation of Matter from Trachea, Via Natural or Artificial Opening Endoscopic (ICD-10-PCS; principal; 2018-03-26)
DX: A41.9 Sepsis, unspecified organism (principal); J18.9 Pneumonia, unspecified organism; J44.1 Chronic obstructive pulmonary disease with (acute) exacerbation; J44.0 Chronic obstructive pulmonary disease with (acute) lower respiratory infection; T17.590A Other foreign object in bronchus causing asphyxiation, initial encounter; D64.9 Anemia, unspecified; I71.4 Abdominal aortic aneurysm, without rupture; E83.41 Hypermagnesemia; I10 Essential (primary) hypertension; F17.200 Nicotine dependence, unspecified, uncomplicated; F12.90 Cannabis use, unspecified, uncomplicated; E66.9 Obesity, unspecified; I25.10 Atherosclerotic heart disease of native coronary artery without angina pectoris; M51.36 Other intervertebral disc degeneration, lumbar region; J20.9 Acute bronchitis, unspecified; F10.10 Alcohol abuse, uncomplicated; X58.XXXA Exposure to other specified factors, initial encounter; Y93.89 Activity, other specified; Y92.89 Other specified places as the place of occurrence of the external cause; Y99.8 Other external cause status; Z86.73 Personal history of transient ischemic attack (TIA), and cerebral infarction without residual deficits; Z83.3 Family history of diabetes mellitus; Z82.49 Family history of ischemic heart disease and other diseases of the circulatory system; Z82.3 Family history of stroke; Z88.6 Allergy status to analgesic agent; Z71.6 Tobacco abuse counseling; Z79.51 Long term (current) use of inhaled steroids; Z79.82 Long term (current) use of aspirin; Z79.899 Other long term (current) drug therapy; Z68.23 Body mass index [BMI] 23.0-23.9, adult

== ENCOUNTER → 2018-04-03 | Outpatient (CLI) | payer SELFPAY ==
[~2018-04-03] MED LIST changes: +ATORVASTATIN CA80 M1 PO; +METOPROLOL TART50 M1 PO; +NATURE'S BLEND F1 MG PO; +VITAMIN D5000 UNI1 PO
== END | disposition home or self-care (01) ==
DX: Z09 Encounter for follow-up examination after completed treatment for conditions other than malignant neoplasm (principal); J43.9 Emphysema, unspecified; I71.4 Abdominal aortic aneurysm, without rupture; I10 Essential (primary) hypertension; F41.8 Other specified anxiety disorders; E78.00 Pure hypercholesterolemia, unspecified; F12.10 Cannabis abuse, uncomplicated; E53.8 Deficiency of other specified B group vitamins; E55.9 Vitamin D deficiency, unspecified; R07.81 Pleurodynia; F17.210 Nicotine dependence, cigarettes, uncomplicated; Z71.6 Tobacco abuse counseling; Z79.82 Long term (current) use of aspirin; Z79.899 Other long term (current) drug therapy; Z88.6 Allergy status to analgesic agent

== ENCOUNTER → 2018-10-27 | Outpatient (CLI) | payer SELFPAY | END | disposition home or self-care (01) | LOC: RESCLI 01:45 | DX: I10 Essential (primary) hypertension (principal); J43.9 Emphysema, unspecified; F41.8 Other specified anxiety disorders; I71.4 Abdominal aortic aneurysm, without rupture; E55.9 Vitamin D deficiency, unspecified; F17.210 Nicotine dependence, cigarettes, uncomplicated; J30.2 Other seasonal allergic rhinitis; Z71.6 Tobacco abuse counseling; Z79.899 Other long term (current) drug therapy; Z88.8 Allergy status to other drugs, medicaments and biological substances ==

== ENCOUNTER → 2019-01-05 | Outpatient (CLI) | payer SELFPAY ==
[~2019-01-05] MED LIST changes: +ALLERGY RELIEF25 MG PO; +GOOD SENSE ASP325 MG PO; +HYDROXYZINE HCL25 MG PO
== END | disposition home or self-care (01) ==
LOC: RESCLI 01:50
DX: J44.9 Chronic obstructive pulmonary disease, unspecified (principal); I10 Essential (primary) hypertension; F41.8 Other specified anxiety disorders; J30.2 Other seasonal allergic rhinitis; F17.210 Nicotine dependence, cigarettes, uncomplicated; Z71.6 Tobacco abuse counseling; Z79.899 Other long term (current) drug therapy

== ENCOUNTER 2019-02-05 06:51 | Inpatient (IN) | payer SELFPAY ==
[~2019-02-05] VITALS: Ht 182.8 cm; Wt 93.1 kg
--- NOTE | ~2019-02-05 | EKG ---
[place], [place] ELECTROCARDIOGRAM REPORT NAME: NEMO AVILA UNIT #: [id number] ROOM: 529 DOCTOR: WENDY DRAFT REPORT BIRTHDATE: [birth year] [facility] Test Date: 2019-02-05 Test Time: 07:03:17 Pat Name: NEMO AVILA Department: Room: 529 Gender: M Mixed Crop Farmer: : 1960 Requested By: IRIS ASKEW Order Number: [id number] Reading MD: Chelsie Thomas MD Measurements Intervals [place] Rate: 69 P: 73 TX: 188 QRS: 58 QRSD: 100 T: 60 QT: 372 QTc: 399 Interpretive Statements Sinus rhythm Probable left atrial enlargement Compared to ECG 03/23/2018 20:26:18 Sinus tachycardia no longer present ST (T wave) deviation no longer present Electronically Signed On 02-05-2019 15:54:53 PDT by Chelsie Thomas MD CM:EKGRPT:ELECTROCARDIOGRAM REPORT [id number] IRIS YAEÑZ DRAFT REPORT IRIS ASKEW DO
[~2019-02-05 06:51] MED LIST changes: -ALLERGY RELIEF25 MG PO; -GOOD SENSE ASP325 MG PO; -HYDROXYZINE HCL25 MG PO
--- NOTE | 2019-02-05 07:07 | NUR ---
BACK FROM CT, ALERT, ORIENTED X 3. TELLS ME "I JUST FEEL LIKE CRAP". SPOUSE PRESENT. ANSWERS ALL MY QUESTIONS APPROPRIATLEY.
[2019-02-05 07:19] VITALS: BP 156/84
[2019-02-05 07:39] LABS: BASO % 0.6 % (0.0-1.0); EOS # 0.1 10*3/uL (0.0-0.4); EOS % 2.3 % (1.0-4.0); HEMATOCRIT 48.4 % (42.0-52.0); HEMOGLOBIN 16.5 g/dl (14.0-18.0); LYMPH # 1.9 10*3/uL (1.3-4.4); LYMPH % 30.4 % (27.0-41.0); MEAN CELL VOLUME 99.4 fl (80.0-94.0); MEAN CORPUSCULAR HGB 33.9 pg (27.0-31.0); MEAN CORPUSCULAR HGB CONC 34.1 g/dl (33.0-37.0); MEAN PLATELET VOLUME 10.7 fl (9.6-12.3); MONO # 0.7 10*3/uL (0.1-1.0); MONO % 11.1 % (3.0-9.0); NEUT # 3.4 10*3/uL (2.3-7.9); NEUT % 55.4 % (47.0-73.0); PLATELET COUNT AUTOMATED 208 10*3/uL (130-400); RED BLOOD COUNT 4.87 10*6/uL (4.50-5.90); RED CELL DISTRI WIDTH 11.9 % (0-14.5); WHITE BLOOD COUNT 6.2 10*3/uL (4.8-10.8)
[2019-02-05 07:50] LABS: ACT PARTIAL THROMBO TIME 28.2 SECONDS (20.0-32.1)
[2019-02-05 07:54] LABS: ALBUMIN 3.6 gm/dl (3.1-4.5); ALKALINE PHOSPHATASE 71 U/L (45-117); BUN 25 mg/dl (7-24); CHLORIDE 104 mmol/L (98-107); CREATININE 1.06 mg/dL (0.70-1.30); POTASSIUM 3.9 mmol/L (3.5-5.1); SGOT/AST 16 IU/L (3-35); SGPT/ALT 22 U/L (12-78); SODIUM 137 mmol/L (136-145); TOTAL PROTEIN 6.8 gm/dL (6.4-8.2)
[2019-02-05 07:55] LABS: TROPONIN I < 0.015 ng/ml (<0.045)
[2019-02-05 09:08] VITALS: BP 148/70
[2019-02-05] MEDS ORDERED: ALLERGY RELIEF25 MG PO (09:47)
[2019-02-05] MEDS ORDERED: HYDROXYZINE HCL25 MG PO (09:49)
--- NOTE | 2019-02-05 09:55 | NUR ---
A 58, admitted to 5E, under the services of YUNIOR Samuel DO with a diagnosis of CVA. Chief complaint is slurred speach. Patient arrived via stretcher from ER. Monitor applied. Initial assessment completed. Vital signs taken and recorded. YUNIOR SAMUEL DO notified of admission to the unit. Orders received. See assessment for past medical history, medications and allergies. Patient and/or family oriented to unit. [address] visitation policy reviewed. Clothing/patient valuable form completed. CONCETTA RADFORD
[2019-02-05 10:00] VITALS: BP 162/86
[2019-02-05 12:00] VITALS: BP 150/68
--- NOTE | 2019-02-05 12:47 | NUR ---
11:30 patient eating lunch, not available for echo. 12:48 patient leaving for MRI, not available for echo.
--- NOTE | 2019-02-05 12:55 | NUR ---
Received a call from [facility] that patient is anxious and cannot lay down form test. Contacted Dr. Wen. See new orders.
--- NOTE | 2019-02-05 15:58 | NUR ---
Nursing screen and Occupational Therapy referral received. Thank you. Tara Barber OTR/L
[2019-02-05 16:00] VITALS: BP 153/80
[2019-02-05 20:00] VITALS: BP 150/69
--- NOTE | 2019-02-05 20:00 | NUR ---
24 HOUR CHART CHECK COMPLETE.
--- NOTE | 2019-02-05 21:07 | NUR ---
PRN TYLENOL ADMINISTERED PRESCRIBED FOR PT C/O HEADACHE THAT HE STATES IS MOST LIKELY FROM HIS LACK OF SLEEP. RATES IT A 4/10 ON THE PAIN SCALE. ON ASSESSMENT THE PT HAS EQUAL FOOT PRESSES. LEFT SIDED HAND MOLD TOOLER ARE SLIGHTLY WEAKER THAN RIGHT. PT HAS SOME LEFT EYE DROOPING THAT WAS PRESENT WHEN I GOT ASSIGNED TO THE PT. WILL CONTINUE TO MONITOR FOR ANY CHANGES IN THE PATIENTS STATUS. OF NOW, VITALS ARE STABLE AND THE PT STATES THAT HE "JUST NEEDS SLEEP".
--- NOTE | 2019-02-05 22:00 | NUR ---
PT ASLEEP AT THIS TIME. NO SIGNS OF DISCOMFORT OR DISTRESS NOTED.
--- NOTE | 2019-02-05 23:44 | NUR ---
PT AWOKE FROM DEEP SLEEP, SAT UP QUICKLY IN BED, STARTLES EASILY. SPEECH CLEAR. PERRLA. LEFT SIDED EYELID DROOPING STILL PRESENT. LEFT SIDED HAND LOGGING EQUIPMENT MECHANIC SLIGHTLY WEAKER THAN RIGHT. FOOT PRESSES OF EQUAL STRENGTH. PT STATES HE FEELS FINE AT THIS TIME. WILL CONTINUE TO MONITOR.
[2019-02-06] VITALS: BP 118/74
--- NOTE | 2019-02-06 02:00 | NUR ---
PT AWAKE, LAYING IN BED. ALERT AND ORIENTED X3. PERRLA. FOOT PRESSES OF EQUAL STRENGTH. PT C/O LEFT ARM WEAKNESS. SLIGHT WEAKNESS NOTED TO LEFT ARM WHILE PERFORMING HAND GRASPS. LEFT EYELID DROOP STILL PRESENT. PT HAS NO COMPLAINTS. WILL CONTINUE TO MONITOR.
[2019-02-06 06:00] LABS: BASO # 0.1 10*3/uL (0.0-0.1); BASO % 0.8 % (0.0-1.0); EOS # 0.2 10*3/uL (0.0-0.4); EOS % 3.1 % (1.0-4.0); HEMATOCRIT 50.1 % (42.0-52.0); HEMOGLOBIN 16.8 g/dl (14.0-18.0); LYMPH # 2.8 10*3/uL (1.3-4.4); LYMPH % 43.2 % (27.0-41.0); MEAN CELL VOLUME 99.8 fl (80.0-94.0); MEAN CORPUSCULAR HGB 33.5 pg (27.0-31.0); MEAN CORPUSCULAR HGB CONC 33.5 g/dl (33.0-37.0); MEAN PLATELET VOLUME 10.9 fl (9.6-12.3); MONO # 0.7 10*3/uL (0.1-1.0); MONO % 10.8 % (3.0-9.0); NEUT # 2.7 10*3/uL (2.3-7.9); NEUT % 41.9 % (47.0-73.0); PLATELET COUNT AUTOMATED 211 10*3/uL (130-400); RED BLOOD COUNT 5.02 10*6/uL (4.50-5.90); RED CELL DISTRI WIDTH 11.9 % (0-14.5); WHITE BLOOD COUNT 6.4 10*3/uL (4.8-10.8)
[2019-02-06 06:30] LABS: ALBUMIN 3.7 gm/dl (3.1-4.5); ALKALINE PHOSPHATASE 69 U/L (45-117); BUN 21 mg/dl (7-24); CHLORIDE 102 mmol/L (98-107); CHOLESTEROL 165 mg/dL (<200); CREATININE 1.09 mg/dL (0.70-1.30); FREE T4 0.92 ng/dl (0.76-1.46); HDL CHOLESTEROL 47 mg/dl (40-60); LDL CHOLESTEROL 104 mg/dL (9-159); PHOSPHOROUS 2.8 mg/dL (2.5-4.9); POTASSIUM 4.1 mmol/L (3.5-5.1); SGOT/AST 16 IU/L (3-35); SGPT/ALT 22 U/L (12-78); SODIUM 136 mmol/L (136-145); TOTAL PROTEIN 6.9 gm/dL (6.4-8.2); TRIGLYCERIDES 69 mg/dl (<150); VLDL CHOLESTEROL 14 mg/dL (6-40)
[2019-02-06 07:22] LABS: VITAMIN D, 25-HYDROXY 26.3 ng/mL (30-100)
[2019-02-06 08:00] VITALS: BP 143/85
--- NOTE | 2019-02-06 11:59 | NUR ---
PT REFUSED SATX
[2019-02-06 12:00] VITALS: BP 140/82
--- NOTE | 2019-02-06 12:36 | NUR ---
PHYSICAL THERAPY PT EVAL COMPLETED TODAY; FULL EVAL TO FOLLOW. RECOMMEND PT WHILE HERE DUE TO NEW ONSET CVA WITH L SIDED WEAKNESS. PT EVAL IS MODERATE COMPLEXITY BASED ON EVAL: 51055. D/C REC: HOME WITH HOME HEALTH OR OUTPATIENT PT. THANK YOU FOR REFERRAL ESTRELLA GOMEZ PT
[2019-02-06 16:00] VITALS: BP 140/84
[2019-02-06 20:00] VITALS: BP 143/95
--- NOTE | 2019-02-06 20:00 | NUR ---
24 HOUR CHART CHECK COMPLETE.
--- NOTE | 2019-02-06 21:56 | NUR ---
PRN RESTORIL ADMINISTERED FOR PT C/O INSOMNIA.
[2019-02-07] VITALS: BP 133/80
--- NOTE | 2019-02-07 07:57 | NUR ---
PT. REFUSED AEROSOL TREATMENT
[2019-02-07 08:00] VITALS: BP 130/88
[2019-02-07] MEDS ORDERED: GOOD SENSE ASP325 MG PO (10:40)
[2019-02-07] MEDS ORDERED: ATORVASTATIN CA80 M1 PO (10:40)
--- NOTE | 2019-02-07 11:30 | NUR ---
Discharge instructions reviewed with patient/family. Patient receptive and verbalizes understanding. Follow-up care arranged. Written instructions given to patient/family. HERVE MCCRAY
== END 2019-02-07 11:30 | disposition home or self-care (01) | DRG 65 ==
LOC: ED 06:51 → EDHOLD 08:20 → 5E 09:52
PROVIDERS: Emergency Medicine; Internal Medicine; ADMIT Family Medicine
DX: I63.9 Cerebral infarction, unspecified (principal); J44.1 Chronic obstructive pulmonary disease with (acute) exacerbation; I10 Essential (primary) hypertension; F12.90 Cannabis use, unspecified, uncomplicated; F10.10 Alcohol abuse, uncomplicated; R73.9 Hyperglycemia, unspecified; R29.818 Other symptoms and signs involving the nervous system; R29.810 Facial weakness; J32.9 Chronic sinusitis, unspecified; M51.36 Other intervertebral disc degeneration, lumbar region; I71.4 Abdominal aortic aneurysm, without rupture; F17.219 Nicotine dependence, cigarettes, with unspecified nicotine-induced disorders; Z88.6 Allergy status to analgesic agent; Z82.49 Family history of ischemic heart disease and other diseases of the circulatory system; Z83.3 Family history of diabetes mellitus; Z71.6 Tobacco abuse counseling; Z71.41 Alcohol abuse counseling and surveillance of alcoholic; Z82.3 Family history of stroke; Z79.82 Long term (current) use of aspirin; Z79.899 Other long term (current) drug therapy

== ENCOUNTER → 2019-02-09 | Outpatient (CLI) | payer SELFPAY ==
[~2019-02-09] MED LIST changes: +ALLERGY RELIEF25 MG PO; +GOOD SENSE ASP325 MG PO; +HYDROXYZINE HCL25 MG PO
== END | disposition home or self-care (01) ==
LOC: RESCLI 01:31
DX: J44.9 Chronic obstructive pulmonary disease, unspecified (principal); I10 Essential (primary) hypertension; E78.00 Pure hypercholesterolemia, unspecified; I63.9 Cerebral infarction, unspecified; F17.210 Nicotine dependence, cigarettes, uncomplicated; E55.9 Vitamin D deficiency, unspecified; Z79.899 Other long term (current) drug therapy; Z88.8 Allergy status to other drugs, medicaments and biological substances

== ENCOUNTER → 2020-02-11 | Outpatient (CLI) | payer SELFPAY | END | disposition home or self-care (01) | LOC: RESCLI 06:10 | PROVIDERS: ATTEND Emergency Medicine | DX: J30.2 Other seasonal allergic rhinitis (principal); J44.9 Chronic obstructive pulmonary disease, unspecified; F17.210 Nicotine dependence, cigarettes, uncomplicated; F41.8 Other specified anxiety disorders; I10 Essential (primary) hypertension; Z12.2 Encounter for screening for malignant neoplasm of respiratory organs; Z86.73 Personal history of transient ischemic attack (TIA), and cerebral infarction without residual deficits; Z23 Encounter for immunization; Z79.899 Other long term (current) drug therapy; Z98.890 Other specified postprocedural states ==

== ENCOUNTER → 2021-01-30 | Outpatient (CLI) | payer SELFPAY ==
[2021-01-30 11:36] LABS: BASO % 0.5 % (0.0-1.0); EOS # 0.1 10*3/uL (0.0-0.4); EOS % 1.4 % (1.0-4.0); HEMATOCRIT 46.2 % (42.0-52.0); LYMPH # 2.3 10*3/uL (1.3-4.4); LYMPH % 37.1 % (27.0-41.0); MEAN CELL VOLUME 95.3 fl (80.0-94.0); MEAN CORPUSCULAR HGB 32.4 pg (27.0-31.0); MEAN PLATELET VOLUME 9.8 fl (9.6-12.3); MONO # 0.8 10*3/uL (0.1-1.0); NEUT % 47.7 % (47.0-73.0); PLATELET COUNT AUTOMATED 257 10*3/uL (130-400); RED BLOOD COUNT 4.85 10*6/uL (4.50-5.90); RED CELL DISTRI WIDTH 11.7 % (0-14.5); WHITE BLOOD COUNT 6.3 10*3/uL (4.8-10.8)
[2021-01-30 11:49] LABS: ALKALINE PHOSPHATASE 81 U/L (45-117); BUN 23 mg/dl (7-24); CHLORIDE 100 mmol/L (98-107); CHOLESTEROL 167 mg/dL (<200); LDL CHOLESTEROL 94 mg/dL (9-159); POTASSIUM 4.1 mmol/L (3.5-5.1); SGOT/AST 18 IU/L (3-35); SGPT/ALT 28 U/L (12-78); SODIUM 133 mmol/L (136-145); TOTAL PROTEIN 7.8 gm/dL (6.4-8.2); TRIGLYCERIDES 78 mg/dl (<150)
== END | disposition home or self-care (01) ==
LOC: RESCLI 00:24
PROVIDERS: Internal Medicine; ATTEND Emergency Medicine
DX: Z23 Encounter for immunization (principal); R05.8 Other specified cough; R06.02 Shortness of breath; I10 Essential (primary) hypertension; J44.9 Chronic obstructive pulmonary disease, unspecified; E78.00 Pure hypercholesterolemia, unspecified; I63.9 Cerebral infarction, unspecified; I71.4 Abdominal aortic aneurysm, without rupture; E55.9 Vitamin D deficiency, unspecified; F41.8 Other specified anxiety disorders; J30.2 Other seasonal allergic rhinitis; F17.210 Nicotine dependence, cigarettes, uncomplicated; F12.90 Cannabis use, unspecified, uncomplicated; F10.20 Alcohol dependence, uncomplicated; Z86.73 Personal history of transient ischemic attack (TIA), and cerebral infarction without residual deficits; Z88.8 Allergy status to other drugs, medicaments and biological substances; Z79.82 Long term (current) use of aspirin; Z79.899 Other long term (current) drug therapy

== ENCOUNTER 2022-06-14 10:27 | Emergency (ER) | payer MEDICAID ==
[~2022-06-14] VITALS: Ht 198.1 cm; Wt 105.2 kg
[2022-06-14 10:49] VITALS: BP 159/92
[2022-06-14 11:12] LABS: BASO % 0.4 % (0.0-1.0); EOS # 0.2 10*3/uL (0.0-0.4); EOS % 1.6 % (1.0-4.0); HEMATOCRIT 45.1 % (42.0-52.0); LYMPH # 2.2 10*3/uL (1.3-4.4); LYMPH % 23.8 % (27.0-41.0); MEAN CELL VOLUME 96.8 fl (80.0-94.0); MEAN CORPUSCULAR HGB 33.5 pg (27.0-31.0); MEAN CORPUSCULAR HGB CONC 34.6 g/dl (33.0-37.0); MEAN PLATELET VOLUME 9.9 fl (9.6-12.3); MONO # 1.1 10*3/uL (0.1-1.0); MONO % 11.5 % (3.0-9.0); NEUT # 5.7 10*3/uL (2.3-7.9); NEUT % 62.6 % (47.0-73.0); PLATELET COUNT AUTOMATED 239 10*3/uL (130-400); RED BLOOD COUNT 4.66 10*6/uL (4.50-5.90); RED CELL DISTRI WIDTH 11.9 % (0-14.5); WHITE BLOOD COUNT 9.1 10*3/uL (4.8-10.8)
[2022-06-14 11:26] LABS: ACT PARTIAL THROMBO TIME 27.3 SECONDS (20.0-32.1)
[2022-06-14 11:28] LABS: ALKALINE PHOSPHATASE 74 U/L (46-116); BUN 12 mg/dl (9-23); CHLORIDE 101 mmol/L (98-107); POTASSIUM 4.6 mmol/L (3.4-5.1); SGPT/ALT 14 U/L (10-49); TOTAL PROTEIN 6.9 gm/dL (6.0-8.0)
[2022-06-14] MEDS ORDERED: PREDNISONE20 M1 PO (12:53)
[2022-06-14] MEDS ORDERED: VIBRAMYCIN100 MG PO (12:53)
== END 2022-06-14 13:28 | disposition home or self-care (01) ==
LOC: ED 10:27
PROVIDERS: Emergency Medicine
DX: J44.1 Chronic obstructive pulmonary disease with (acute) exacerbation (principal); Z88.6 Allergy status to analgesic agent; F17.210 Nicotine dependence, cigarettes, uncomplicated

== ENCOUNTER 2022-11-25 08:22 | Emergency (ER) | payer MEDICAID ==
[~2022-11-25] VITALS: Ht 198.1 cm; Wt 108.9 kg
[2022-11-25 08:33] VITALS: BP 138/92
[2022-11-25] MEDS ORDERED: ASPIRIN ADULT L81 M2 PO (08:41)
[2022-11-25] MEDS ORDERED: HYDROXYZINE PAM25 M1 PO (08:42)
[2022-11-25] MEDS ORDERED: PRAVASTATIN SOD40 MG PO (08:43)
[2022-11-25] MEDS ORDERED: VENT7GM INH (08:43)
[2022-11-25] MEDS ORDERED: PAROXETINE HCL10 MG PO (08:43)
[2022-11-25] MEDS ORDERED: ADV 100/50 INH (08:44)
[2022-11-25 09:36] LABS: BASO % 0.4 % (0.0-1.0); EOS # 0.2 10*3/uL (0.0-0.4); EOS % 2.3 % (1.0-4.0); HEMATOCRIT 42.5 % (42.0-52.0); LYMPH # 2.2 10*3/uL (1.3-4.4); LYMPH % 26.8 % (27.0-41.0); MEAN CELL VOLUME 92.6 fl (80.0-94.0); MEAN CORPUSCULAR HGB 33.6 pg (27.0-31.0); MEAN CORPUSCULAR HGB CONC 36.2 g/dl (33.0-37.0); MONO # 0.8 10*3/uL (0.1-1.0); MONO % 9.5 % (3.0-9.0); NEUT # 4.9 10*3/uL (2.3-7.9); NEUT % 60.8 % (47.0-73.0); PLATELET COUNT AUTOMATED 253 10*3/uL (130-400); RED BLOOD COUNT 4.59 10*6/uL (4.50-5.90); RED CELL DISTRI WIDTH 11.9 % (0-14.5); WHITE BLOOD COUNT 8.1 10*3/uL (4.8-10.8)
[2022-11-25 09:48] LABS: ACT PARTIAL THROMBO TIME 32.1 SECONDS (20.0-32.1)
[2022-11-25 09:58] LABS: ALKALINE PHOSPHATASE 70 U/L (46-116); BUN 7 mg/dl (9-23); CHLORIDE 94 mmol/L (98-107); LIPASE 29 U/L (12-53); POTASSIUM 5.3 mmol/L (3.4-5.1); SGPT/ALT 16 U/L (10-49); TOTAL PROTEIN 6.9 gm/dL (6.0-8.0)
[2022-11-25] MEDS ORDERED: PERCOCET 5-3251 EACH PO (11:23)
== END 2022-11-25 11:28 | disposition home or self-care (01) ==
LOC: ED 08:22
PROVIDERS: Emergency Medicine
DX: S01.81XA Laceration without foreign body of other part of head, initial encounter (principal); S20.212A Contusion of left front wall of thorax, initial encounter; J44.9 Chronic obstructive pulmonary disease, unspecified; Z86.718 Personal history of other venous thrombosis and embolism; I10 Essential (primary) hypertension; Z88.6 Allergy status to analgesic agent; Z98.890 Other specified postprocedural states; F10.10 Alcohol abuse, uncomplicated; F12.90 Cannabis use, unspecified, uncomplicated; Z72.0 Tobacco use; W06.XXXA Fall from bed, initial encounter; Y93.89 Activity, other specified; Y92.89 Other specified places as the place of occurrence of the external cause; Y99.8 Other external cause status

== ENCOUNTER 2023-04-17 08:54 | Emergency (ER) | payer MEDICAID ==
[~2023-04-17] VITALS: Wt 104.3 kg
[~2023-04-17 08:54] MED LIST changes: +ADV 100/50 INH; +ASPIRIN ADULT L81 M2 PO; +HYDROXYZINE PAM25 M1 PO; +PAROXETINE HCL10 MG PO; +PERCOCET 5-3251 EACH PO; +PRAVASTATIN SOD40 MG PO; +VENT7GM INH
[2023-04-17 09:04] VITALS: BP 161/93
[2023-04-17] MEDS ORDERED: PREDNISONE50 MG PO (10:02)
[2023-04-17] MEDS ORDERED: CYCLOBENZAPRINE5 M3 PO (10:02)
== END 2023-04-17 10:20 | disposition home or self-care (01) ==
LOC: ED 08:54
DX: M54.9 Dorsalgia, unspecified (principal); J44.9 Chronic obstructive pulmonary disease, unspecified; Z86.73 Personal history of transient ischemic attack (TIA), and cerebral infarction without residual deficits; I10 Essential (primary) hypertension; Z88.6 Allergy status to analgesic agent; Z98.890 Other specified postprocedural states; F10.10 Alcohol abuse, uncomplicated; F12.90 Cannabis use, unspecified, uncomplicated; F17.200 Nicotine dependence, unspecified, uncomplicated